=== PATIENT | female | born 1960 | race Caucasian/White ===

== ENCOUNTER 2019-04-22 05:56 | Day surgery (SDC) | payer OTHER ==
[2019-04-22] VITALS (18 sets, daily range): BP systolic 138–189; BP diastolic 64–94; PULSE 62–84; RESP 11–26; Ht 165.1 cm; Wt 99.1 kg
[~2019-04-22] VITALS: Ht 165.1 cm; Wt 99.1 kg
[2019-04-22] MEDS ORDERED: LACTATED RINGER'S 1,000 ML IV SCH (07:00)
[2019-04-22] MEDS ORDERED: LIDOCAINE 1%/EPI 30 ML INJ ONE (07:10)
[2019-04-22] MEDS ORDERED: COCAINE 4% 4 ML TOP ONE (07:11)
[2019-04-22] MEDS ORDERED: MEPERIDINE 25 MG INJ IV PRN (07:30)
[2019-04-22] MEDS ORDERED: FENTAnyl 50 MCG/ML VIAL IV PRN ×2 (07:30)
[2019-04-22] MEDS ORDERED: hydrALAzine 20 MG INJ IV PRN (07:30)
[2019-04-22] MEDS ORDERED: EPHEDrine 25 MG/5 ML SYG IV PRN (07:30)
[2019-04-22] MEDS ORDERED: DIPHENHYDRAMINE 50 MG INJ IV PRN (07:30)
[2019-04-22] MEDS ORDERED: OXYCODONE/ACETAMINOPHEN (5/325) TAB PO PRN (07:30)
[2019-04-22] MEDS ORDERED: PROCHLORPERAZINE 10 MG INJ IV PRN (07:30)
[2019-04-22] MEDS ORDERED: HYDROmorphONE 1 MG/5 ML IV SYRINGE IV PRN ×3 (07:30)
[2019-04-22] MEDS ORDERED: LABETALOL HCL 20MG INJ IV PRN (07:30)
[2019-04-22] MEDS ORDERED: ONDANSETRON 4 MG INJ IV PRN (07:30)
[2019-04-22] MEDS ORDERED: SEVOFLURANE 15 MIN ONE (07:40)
[2019-04-22] MEDS ORDERED: FENTAnyl 50 MCG/ML VIAL ONE (07:43)
[2019-04-22] MEDS ORDERED: MIDAZOLAM 1 MG/ML 2 ML INJ ONE (07:43)
[2019-04-22] MEDS ORDERED: BACITRACIN/POLYMYXIN 28.35 GM OINT TOP ONE (08:24)
[2019-04-22] MEDS ORDERED: GLYCOPYRROLATE 0.4 MG INJ ONE (08:34)
[2019-04-22] MEDS ORDERED: ROCURONIUM 50 MG INJ ONE (08:34)
[2019-04-22] MEDS ORDERED: SUCCINYLCHOLINE CHLORIDE 100 MG/5 ML SYG IV ONE (08:34)
[2019-04-22] MEDS ORDERED: ONDANSETRON 4 MG INJ ONE (08:34)
[2019-04-22] MEDS ORDERED: NEOSTIGMINE 3 MG/3 ML SYRINGE ONE (08:34)
[2019-04-22] MEDS ORDERED: LIDOCAINE 2% (SDV) 5 ML INJ ONE (08:34)
[2019-04-22] MEDS ORDERED: DEXAMETHASONE 4 MG/ML 5 ML INJ ONE (08:34)
[2019-04-22] MEDS ORDERED: PROPOFOL 20 ML ONE (08:34)
[2019-04-22] MEDS ORDERED: HYDROCODONE/APAP (7.5/325) TAB PO PRN (09:00)
== END 2019-04-22 10:37 | disposition home or self-care (01) ==
LOC: SDS 05:56
PROVIDERS: ATTEND Otolaryngology Otolaryngology/Facial Plastic Surgery
DX: J34.2 Deviated nasal septum (principal); J34.3 Hypertrophy of nasal turbinates; J32.9 Chronic sinusitis, unspecified; E66.9 Obesity, unspecified; Z68.36 Body mass index [BMI] 36.0-36.9, adult
CPT/HCPCS: 30140; 30520; 31253; 31256; 88304; J0360; J1100; J1170; J2250; J2405; J2710; J3010; Z7512; Z7610